=== PATIENT | female | born 1960 | race Caucasian/White ===

== ENCOUNTER 2020-11-11 11:45 | Outpatient (CLI) | payer OTHER ==
[~2020-11-11] VITALS: Ht 161.9 cm; Wt 82.1 kg
[2020-11-11] VITALS (10 sets, daily range): BP systolic 125–139; BP diastolic 62–79
[~2020-11-11 11:45] MED LIST: CPR500T; DICY20TA10; LVT.05T; MEPE50TA; METR500T; ONDAN4ODT PO; PROM25SU10 PR; TRIA1TAB3
[2020-11-11 12:29] LABS: HEMOGLOBIN 15.5 g/dL (11.5-16.0); MEAN PLATELET VOLUME 9.6 fL (9.0-12.2); WHITE BLOOD COUNT 10.3 10^3/uL (4.3-11.0)
[2020-11-11] MEDS ORDERED: NS IV 1000 ML 1,000 ML IV STA (12:40)
[2020-11-11 12:45] LABS: INR 0.9 (0.8-1.4)
[2020-11-11] MEDS ORDERED: LIDOCAINE 1% INJ 20 ML 20 ML VIAL INJ ONE (12:45)
[2020-11-11] MEDS ORDERED: MIDAZOLAM 2 MG/2 ML (VERSED) VIAL IVP ONE (12:45)
[2020-11-11] MEDS ORDERED: fentaNYL INJECTION 100 MCG/2 ML AMP IVP ONE (12:45)
[2020-11-11] MEDS ORDERED: PREMPRO (14:20)
[2020-11-11] MEDS ORDERED: ADDERALL (14:20)
--- NOTE | 2020-11-11 14:40 | Diagnostic Imaging Report ---
INDICATION: LIVE BX TECHNIQUE: All CT scans use one or more of the following dose optimizing techniques: automated exposure control, MA and/or KvP adjustment based on patient size and exam type or iterative reconstruction. Patient was brought to the CT suite placed on table in the supine position. Axial imaging through the abdomen was performed to evaluate appropriate entry site. Procedure was performed utilizing radiology nursing and conscious sedation. Patient was given a total of 50 mcg of Fentanyl intravenously and 1 mg of Versed intravenously. Total procedure time was 5 minutes. Right abdomen was prepped and draped usual sterile fashion. Small amount of 1% lidocaine was utilized for local anesthesia. 18-gauge coaxial Temno needle was advanced into the right lobe of liver. 3 core biopsies were obtained. Blood patch was injected during needle removal. Hemostasis was obtained using manual compression. Patient tolerated the procedure well and left department in stable condition. IMPRESSION: Successful CT-guided random liver biopsy utilizing conscious sedation. Dictated by: Dictated on workstation # [id number]
--- NOTE | 2020-11-11 15:59 | Pre-Op Note & Conscious Sedat ---
Pre-Operative Progress Note H&P Reviewed The H&P was reviewed, patient examined and no changes noted. Date H&P Reviewed: Nov 11, 2020 Time H&P Reviewed: 09:00 Pre-Op Diagnosis: hepatitis Conscious Sedation Pre-Proced Time 09:00 ASA Score 2 For ASA 3 and 4: Consider anesthesia and medical clearance. Also, for patients with a history of failed moderate sedation consider anesthesia. Airway Lungs Heart ASA score ASA 1: a normal healthy patient ASA 2: a patient with a mild systemic disease (mid diabetes, controlled hypertension, obesity ASA 3: a patient with a severe systemic disease that limits activity (angina, COPD, prior Myocardial infarction) ASA 4: a patient with an incapacitating disease that is a constant threat to life (CHF, renal failure) ASA 5: a moribund patient not expected to survive 24 hrs. (ruptured aneurysm) ASA 6: a declared brain- patient whose organs are being harvested. For emergent operations, add the letter E after the classification Mallampati Classification Grade 2 Sedation Plan Analgesia, Amnesia, Plan communicated to team members, Discussed options with patient/fam, Discussed risks with patient/fam The patient is an appropriate candidate to undergo the planned procedure, sedation, and anesthesia. The patient immediately re-assessed prior to indication. KADIE RICHARDSON MD Nov 11, 2020 15:59
[2020-11-11] MEDS ORDERED: AMPH20TA2 PO (16:10)
[2020-11-11] MEDS ORDERED: ONDA4TAB11 PO (16:10)
[2020-11-11] MEDS ORDERED: LEVO50TA6 PO (16:10)
[2020-11-11] MEDS ORDERED: NFPREMP0.3 PO (16:10)
== END 2020-11-11 16:35 | disposition home or self-care (01) ==
LOC: SDC 11:45
PROVIDERS: ATTEND Pediatrics
DX: K73.9 Chronic hepatitis, unspecified (principal); J20.9 Acute bronchitis, unspecified; M65.311 Trigger thumb, right thumb
CPT/HCPCS: 36415; 77012; 85027; 85610; 85730; 99156

== ENCOUNTER → 2020-11-13 | Outpatient (CLI) | payer OTHER ==
[~2020-11-13] MED LIST changes: +ADDERALL; +AMPH20TA2 PO; +LEVO50TA6 PO; +NFPREMP0.3 PO; +ONDA4TAB11 PO; +PREMPRO
--- NOTE | 2020-11-14 08:27 | Diagnostic Imaging Report ---
PROCEDURE: CT abdomen without contrast. TECHNIQUE: Multiple contiguous axial images were obtained through the abdomen without the use of intravenous contrast. Auto Exposure Controls were utilized during the CT exam to meet ALARA standards for radiation dose reduction. INDICATION: Chronic hepatitis, pain status post biopsy. COMPARISON: 05/18/2009 and 11/11/2020. FINDINGS: Mild bibasilar scarring and/or atelectasis. Cholecystectomy. The unenhanced liver is unremarkable. The common bile duct is mildly dilated measuring up to 1.3 cm in transverse diameter. This has increased in size since 2008. Additionally, hyperdensity is identified within the inferior aspect of the common bile duct, best seen on series 2, image 32. No definite pancreatic ductal dilatation. The unenhanced spleen is unremarkable. The adrenal glands are unremarkable. The kidneys are unremarkable. Moderate vascular calcifications without aneurysmal dilatation of the abdominal aorta. No bowel obstruction or pneumatosis. No significant adenopathy, free air, or free fluid within the abdomen. No focal fluid collection. Scattered osseous degenerative changes without acute osseous abnormality. IMPRESSION: Mild dilatation of the common bile duct with ill-defined hyperdensities within the inferior aspect of the common bile duct. This could relate to blood products and blood clot; however, choledocholith or even mass lesion would be additional considerations. A right upper quadrant ultrasound would help to further evaluate. Additionally, consideration for ERCP versus MRCP should be made. Cholecystectomy. No abnormal focal fluid collection. Additional findings as above. Attempts were made to contact Dr. Matt at [phone] A message was left on the above number's voice mail for a return call. Report was called and faxed to office of Dr. Matt by antonio at 8:25am. Dictated by: Dictated on workstation # [id number]
== END ==
LOC: RAD 15:39
PROVIDERS: ATTEND Pediatrics
DX: K73.9 Chronic hepatitis, unspecified (principal); K83.8 Other specified diseases of biliary tract; Z90.49 Acquired absence of other specified parts of digestive tract
CPT/HCPCS: 74150

== ENCOUNTER 2020-11-14 13:05 | Emergency (ER) | payer OTHER ==
[~2020-11-14] VITALS: Ht 162 cm; Wt 60.0 kg
[2020-11-14 13:47] LABS: CLARITY,URINE CLEAR; COLOR,URINE AMBER; GLUCOSE, URINE (UA) TRACE (NEGATIVE); KETONES,URINE TRACE (NEGATIVE); LEUKOCYTE ESTERASE ,URINE TRACE (NEGATIVE); NITRITE,URINE POSITIVE (NEGATIVE); PH,URINE 5.5 (5-9); PROTEIN,URINE 2+ (NEGATIVE)
[2020-11-14 13:53] LABS: BASOPHILS # (AUTO) 0.1 10^3/uL (0.0-0.1); BASOPHILS % (AUTO) 1 % (0-10); EOSINOPHILS % (AUTO) 0 % (0-10); HEMATOCRIT 41 % (35-52); HEMOGLOBIN 14.4 g/dL (11.5-16.0); LYMPHOCYTES # (AUTO) 1.8 10^3/uL (1.0-4.0); LYMPHOCYTES % (AUTO) 12 % (12-44); MEAN CORPUSCULAR HEMOGLOBIN 32 pg (25-34); MEAN CORPUSCULAR HGB CONC 35 g/dL (32-36); MEAN CORPUSCULAR VOLUME 90 fL (80-99); MEAN PLATELET VOLUME 9.6 fL (9.0-12.2); MONOCYTES # (AUTO) 1.3 10^3/uL (0.0-1.0); MONOCYTES % (AUTO) 9 % (0-12); NEUTROPHILS % (AUTO) 79 % (42-75); PLATELET COUNT 226 10^3/uL (130-400); WHITE BLOOD COUNT 15.2 10^3/uL (4.3-11.0)
[2020-11-14] MEDS ORDERED: fentaNYL INJECTION 100 MCG/2 ML AMP IVP ONE ×2 (14:00→15:00)
[2020-11-14] MEDS ORDERED: NS IV 1000 ML 1,000 ML IV SCH (14:00)
[2020-11-14 14:02] LABS: ALBUMIN 3.5 GM/DL (3.2-4.5); CHLORIDE 100 MMOL/L (98-107); POTASSIUM 3.9 MMOL/L (3.6-5.0); SODIUM 133 MMOL/L (135-145)
[2020-11-14 14:04] LABS: GLUCOSE 132 MG/DL (70-105); TOTAL PROTEIN 7.2 GM/DL (6.4-8.2)
[2020-11-14 14:05] LABS: AMMONIA 27 UMOL/L (11-32)
[2020-11-14 14:06] LABS: BACTERIA,URINE NEGATIVE /HPF; BILIRUBIN,URINE 3+ (NEGATIVE)
[2020-11-14 14:06] LABS: CARBON DIOXIDE 24 MMOL/L (21-32)
[2020-11-14 14:08] LABS: ALKALINE PHOSPHATASE 406 U/L (40-136); CREATININE SERUM 0.94 MG/DL (0.60-1.30); GFR ESTIMATED > 60; INR 0.9 (0.8-1.4); PROTHROMBIN TIME PATIENT 12.3 SEC (12.2-14.7)
[2020-11-14 14:09] LABS: BUN/CREATININE RATIO 19
[2020-11-14 14:10] LABS: BILIRUBIN,TOTAL 23.9 MG/DL (0.1-1.0)
[2020-11-14 14:11] LABS: ALANINE AMINOTRANSFERASE 75 U/L (0-55); BAND NEUTROPHILS 0 %; BASOPHILS % (MANUAL) 0 %; EOSINOPHILS % (MANUAL) 1 %; LYMPHOCYTES % (MANUAL) 13 %; MONOCYTES % (MANUAL) 6 %; NEUTROPHILS % (MANUAL) 80 %; RBC MORPH NORMAL
[2020-11-14 14:12] LABS: MAGNESIUM 1.9 MG/DL (1.6-2.4)
[2020-11-14 14:13] LABS: LIPASE < 4 U/L (8-78)
[2020-11-14 14:19] LABS: CREATINE KINASE MB 0.7 NG/ML (<6.6)
[2020-11-14] MEDS ORDERED: morphine INJ 10 MG/ML 1ML (SYR OR VIAL) IVP STA (14:41)
--- NOTE | 2020-11-14 15:37 | ED Abdominal Pain ---
General Chief Complaint: Abdominal/GI Problems Stated Complaint: LIVER PAIN Nursing Triage Note: ARRIVED VIA AMB TO ROOM 04 WITH COMPLAINTS OF LEFT SIDE PAIN AND YELLOWING OF THE SKIN. STATES SHE HAD A LIVER BX ON WEDNESDAY HERE. SEEN BY DR VIERA TODAY WHO WANTED HER TO COME HERE FOR [facility] ADMIT. Sepsis Screen: No Definite Risk Source of Information: Patient History of Present Illness Date Seen by Provider: Nov 14, 2020 Time Seen by Provider: 13:27 Initial Comments This 60-year-old woman presents to the emergency room at the direction of her primary care provider, Dr. Hilario Viera, from the [facility]. She has been under work-up as an outpatient for hepatitis and hyperbilirubinemia. She underwent a liver biopsy on November 11 demonstrating chronic hepatitis with moderate periportal inflammation and cirrhosis. Her viral hepatitis panel was negative on a recent draw. She has been having escalating pain and escalating serum bilirubin levels. She is now extremely jaundiced. Dr. Viera has been in contact with Dr. Gr at [facility]. Transferred for evaluation by hepatology as recommended. She is being sent to the emergency room for stabilization of pain, reevaluation of labs, and to facilitate transfer to [facility]. Patient denies any history of alcohol use. See clinic chart for additional information. CT scan performed at this facility yesterday revealed CBD dilatation with concern for clot, mass obstruction, or ductal lithiasis. Allergies and Home Medications Allergies Coded Allergies: NKANo Known Allergies (Unverified Allergy, Mild, 05/18/09) morphine (Verified Adverse Reaction, Unknown, hallucinations, 11/14/20) Home Medications Dextroamphetamine/Amphetamine 20 Mg Tablet, 20 MG PO BID, (Reported) TAKES ONE TAB IN AM, AND ONE TAB AT NOON. Estrogen,Con/M-Progest Acet 1 Each Tablet, 1 EACH PO DAILY, (Reported) Levothyroxine Sodium 50 Mcg Tablet, 50 MCG PO DAILY, (Reported) Ondansetron 4 Mg Tab.rapdis, 4 MG PO DAILY, (Reported) Patient Home Medication List Home Medication List Reviewed: Yes Review of Systems Review of Systems Constitutional: no symptoms reported EENTM: See HPI Respiratory: No Symptoms Reported Gastrointestinal: See HPI Genitourinary: No Symptoms Reported Musculoskeletal: no symptoms reported Skin: see HPI Psychiatric/Neurological: No Symptoms Reported Endocrine: No Symptoms Reported Hematologic/Lymphatic: No Symptoms Reported Past [id number]-[id number] Hx Past Med/Social Hx: Reviewed Nursing Past Med/Soc Hx Patient Social History Alcohol Use: Denies Use Smoking Status: Never a Smoker Recent Infectious Disease Expo: No Past Medical History Surgeries: Yes Abdominal, Appendectomy, Bowel Surgery, Gallbladder Respiratory: No Cardiac: No Neurological: No Reproductive Disorders: No Genitourinary: No Gastrointestinal: No Musculoskeletal: No Endocrine: No HEENT: No Cancer: No Did You Recieve Any Treatments: No Psychosocial: No Integumentary: No Physical Exam Vital Signs Vital Signs - First Documented 11/14/20 13:22 Temp 37.7 Pulse 104 Resp 16 B/P (MAP) 150/74 (99) Pulse Ox 95 O2 Delivery Room Air Capillary Refill : Less Than 3 Seconds Height/Weight/BMI Height: '" Weight: lbs. oz. 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 as tested, no motor/sensory deficits, alert, normal mood/affect, oriented x 3 Skin: normal color, warm/dry Focused Exam Lactate Level 11/14/20 16:54: Lactic Acid Level 1.52 Lactic Acid Level Laboratory Tests Test 11/14/20 16:54 Lactic Acid Level 1.52 MMOL/L (0.50-2.00) Progress/Results/Core Measures Results/Orders Lab Results Laboratory Tests Test 11/14/20 13:42 11/14/20 13:45 11/14/20 16:54 11/14/20 17:00 Range/Units Urine Color VIRGEN H Urine Clarity CLEAR Urine pH 5.5 5-9 Urine Specific Sundown 1.025 H 1.016-1.022 Urine Protein 2+ H NEGATIVE Urine Glucose (UA) TRACE H NEGATIVE Urine Ketones TRACE H NEGATIVE Urine Nitrite POSITIVE H NEGATIVE Urine Bilirubin 3+ H NEGATIVE Urine Urobilinogen 4.0 < = 1.0 MG/DL Urine Leukocyte Esterase TRACE H NEGATIVE Urine RBC (Auto) TRACE-I NEGATIVE Urine RBC NONE /HPF Urine WBC 2-5 /HPF Urine Squamous Epithelial Cells 5-10 /HPF Urine Crystals NONE /LPF Urine Bacteria NEGATIVE /HPF Urine Casts NONE /LPF Urine Mucus NEGATIVE /LPF Urine Culture Indicated NO White Blood Count 15.2 H 4.3-11.0 10^3/uL Red Blood Count 4.56 3.80-5.11 10^6/uL Hemoglobin 14.4 11.5-16.0 g/dL Hematocrit 41 35-52 % Mean Corpuscular Volume 90 80-99 fL Mean Corpuscular Hemoglobin 32 25-34 pg Mean Corpuscular Hemoglobin Concent 35 32-36 g/dL Red Cell Distribution Width 14.3 10.0-14.5 % Platelet Count 226 130-400 10^3/uL Mean Platelet Volume 9.6 9.0-12.2 fL Immature Granulocyte % (Auto) 1 % Neutrophils (%) (Auto) 79 H 42-75 % Lymphocytes (%) (Auto) 12 12-44 % Monocytes (%) (Auto) 9 0-12 % Eosinophils (%) (Auto) 0 0-10 % Basophils (%) (Auto) 1 0-10 % Neutrophils # (Auto) 12.0 H 1.8-7.8 10^3/uL Lymphocytes # (Auto) 1.8 1.0-4.0 10^3/uL Monocytes # (Auto) 1.3 H 0.0-1.0 10^3/uL Eosinophils # (Auto) 0.0 0.0-0.3 10^3/uL Basophils # (Auto) 0.1 0.0-0.1 10^3/uL Immature Granulocyte # (Auto) 0.1 0.0-0.1 10^3/uL Neutrophils % (Manual) 80 % Lymphocytes % (Manual) 13 % Monocytes % (Manual) 6 % Eosinophils % (Manual) 1 % Basophils % (Manual) 0 % Band Neutrophils 0 % Blood Morphology Comment NORMAL Prothrombin Time 12.3 12.2-14.7 SEC INR Comment 0.9 0.8-1.4 Sodium Level 133 L 135-145 MMOL/L Potassium Level 3.9 3.6-5.0 MMOL/L Chloride Level 100 98-107 MMOL/L Carbon Dioxide Level 24 21-32 MMOL/L Anion Gap 9 5-14 MMOL/L Blood Urea Nitrogen 18 7-18 MG/DL Creatinine 0.94 0.60-1.30 MG/DL Estimat Glomerular Filtration Rate > 60 BUN/Creatinine Ratio 19 Glucose Level 132 H 70-105 MG/DL Calcium Level 9.0 8.5-10.1 MG/DL Corrected Calcium 9.4 8.5-10.1 MG/DL Magnesium Level 1.9 1.6-2.4 MG/DL Total Bilirubin 23.9 *H 0.1-1.0 MG/DL Aspartate Amino Transf (AST/SGOT) 43 H 5-34 U/L Alanine Aminotransferase (ALT/SGPT) 75 H 0-55 U/L Alkaline Phosphatase 406 H 40-136 U/L Ammonia 27 11-32 UMOL/L Creatine Kinase MB 0.7 <6.6 NG/ML Total Protein 7.2 6.4-8.2 GM/DL Albumin 3.5 3.2-4.5 GM/DL Lipase < 4 L 8-78 U/L Lactic Acid Level 1.52 0.50-2.00 MMOL/L Coronavirus 2019 (MARISOL) Negative Negative My Orders Orders - LAMONT SEXTON MD Ammonia (11/14/20 13:27) Cbc With Automated Diff (11/14/20 13:27) Comprehensive Metabolic Panel (11/14/20 13:27) Creatine Kinase Mb (11/14/20 13:27) Lipase (11/14/20 13:27) Magnesium (11/14/20 13:27) Protime With Inr (11/14/20 13:27) Ua Culture If Indicated (11/14/20 13:27) Ed Iv/Invasive Line Start (11/14/20 13:27) Manual Differential (11/14/20 13:45) Ns Iv 1000 Ml (Sodium Chloride 0.9%) (11/14/20 14:00) Fentanyl Injection (Sublimaze Injection (11/14/20 14:00) Morphine Injection (Morphine Injection (11/14/20 14:41) Fentanyl Injection (Sublimaze Injection (11/14/20 15:00) Hydromorphone Injection (Dilaudid Inject (11/14/20 16:00) Blood Culture (11/14/20 16:36) Lactic Acid Analyzer (11/14/20 16:36) Piperacillin Sodium/Tazobactam (Zosyn Vi (11/14/20 16:45) Covid 19 Inhouse Test (11/14/20 16:36) Hydromorphone Injection (Dilaudid Inject (11/14/20 19:30) Medications Given in ED Current Medications Medications Dose Ordered Sig/Kamron Route Start Time Stop Time Status Last Admin Dose Admin Fentanyl Citrate 50 mcg ONCE ONCE IVP 11/14/20 14:00 11/14/20 14:01 DC 11/14/20 14:04 50 MCG Fentanyl Citrate 75 mcg ONCE ONCE IVP 11/14/20 15:00 11/14/20 15:01 DC 11/14/20 15:03 75 MCG Hydromorphone HCl 0.5 mg ONCE ONCE IV 11/14/20 16:00 11/14/20 16:01 DC 11/14/20 15:58 0.5 MG Hydromorphone HCl 0.5 mg PRN ONCE IV 11/14/20 19:30 11/14/20 19:31 DC 11/14/20 19:37 0.5 MG Piperacillin Sod/ Tazobactam Sod 4.5 gm/Sodium Chloride 100 ml @ 200 mls/hr ONCE ONCE IV 11/14/20 16:45 11/14/20 17:14 DC 11/14/20 17:48 200 MLS/HR Vital Signs/I&O 11/14/20 11/14/20 11/14/20 13:22 17:55 19:39 Temp 37.7 36.4 36.4 Pulse 104 106 98 Resp 16 16 16 B/P (MAP) 150/74 (99) 131/65 (87) 128/64 (87) Pulse Ox 95 93 94 O2 Delivery Room Air Room Air Room Air Blood Pressure Mean: 99 Progress Progress Note : Progress Note Patient was seen and evaluated. Labs were repeated. Bilirubin is significantly elevated. I have made contact with [facility] and they have ultimately accepted transfer. We are waiting EMS at this time. Patient received 2 doses of fentanyl and a dose of Dilaudid for pain. Departure Impression Primary Impression: Biliary obstruction Additional Impressions: Chronic hepatitis Hyperbilirubinemia Right upper quadrant pain Disposition: XFER SHT-TRM HOSP Condition: Stable Transfer Transfer Reason: Exceeds level of care Time Spoke to Accepting Phy: 16:40 Transfer Progress Notes Accepting physician Dr. Calderon Transfer Time: 19:39 Transfer Facility: [facility] Method of Transfer: EMS Departure-Patient Inst. Referrals: HILARIO VIERA MD (PCP/Family) Primary Care Physician LAMONT SEXTON MD Nov 14, 2020 15:37
[2020-11-14] MEDS ORDERED: HYDROmorphone 2 MG/ML VIAL (DILAUDID) IV ONE ×2 (16:00→19:30)
[2020-11-14] MEDS ORDERED: PIPERACILLIN SODIUM/TAZOBACTAM 4.5 GM in NS (IVPB) 100 ML IV ONE (16:45)
[2020-11-14 19:39] VITALS: BP 128/64
== END 2020-11-14 19:39 | disposition short-term general hospital (02) ==
LOC: EDUNIT# 13:05 → ER 13:06
DX: K83.1 Obstruction of bile duct (principal); K73.9 Chronic hepatitis, unspecified; E80.6 Other disorders of bilirubin metabolism; Z88.5 Allergy status to narcotic agent; Z20.822 Contact with and (suspected) exposure to COVID-19
CPT/HCPCS: 80053; 81000; 82140; 82553; 83605; 83690; 83735; 85007; 85027; 85610; 87040; 87088; 99285; U0002; 36415; 87186; 87635